=== PATIENT | male | born 1990 | race Caucasian/White ===

== ENCOUNTER 2021-05-05 02:37 | Emergency (ER) | payer OTHER ==
[~2021-05-05] VITALS: Ht 175.3 cm; Wt 64.0 kg
[2021-05-05] MEDS ORDERED: ONDANSETRON 2MG/ML, 2ML ONE (03:00)
[2021-05-05] MEDS ORDERED: ONDANSETRON 2MG/ML, 2ML IVPush ONE (03:00)
[2021-05-05] MEDS ORDERED: HYDROmorphone 1 MG/ML, 1ML INJ IV ONE ×2 (03:00→04:30)
[2021-05-05] MEDS ORDERED: HYDROmorphone 2 MG/ML, 1ML ONE ×2 (03:00→04:23)
[2021-05-05] MEDS ORDERED: SODIUM CHLORIDE FLUSH 10ML SYR IVF ONE (03:00)
[2021-05-05] MEDS ORDERED: SODIUM CHLORIDE 0.9% 1,000ML IVBOLUS ONE (03:30)
--- NOTE | 2021-05-05 03:39 | NUR ---
PIV PLACED, MEDS ADMIN PER OCT. ERNP NOTIFIED OF LOW BP, ORDER RECEIVED FOR IVF BOLUS. IVF RUNNING PER OCT. BP 100/65.
--- NOTE | 2021-05-05 04:28 | NUR ---
PT BACK FROM XRAY. PT C/O 06/04 PAIN. SECOND DOSE PAIN SNOW REMOVAL/PLOWING PER OCT.
[2021-05-05] MEDS ORDERED: PROPOFOL 10 MG/ML, 20ML ONE (04:50)
[2021-05-05] MEDS ORDERED: PROPOFOL 10 MG/ML, 20ML IVPush ONE (05:00)
--- NOTE | 2021-05-05 05:54 | NUR ---
BREAK RN: PT HAD SEDATION PROCEDURE DONE AND RECOVERED. SEE SEDATION SHEET AND NOTES. PT SIGNED CONSENT PRIOR TO PROCEDURE, AND RIGHT WRIST REDUCED UNDER CONSCIOUSS SEDATION, AND PT TOLERATED WELL. PTS GIRLFRIEND BROUGHT TO ROOM, SHE IS HIS RIDE. NO FURTHER SEDATION. TOTAL OF 170MG OF PROPOFOL USED.
--- NOTE | 2021-05-05 06:26 | NUR ---
PT GIRLFRIEND, CAMILLE, NOT IN LOBBY AT THIS TIME. SHE HAS PT PHONE, UNABLE TO CALL HER.
[2021-05-05 07:33] VITALS: BP 105/66
--- NOTE | 2021-05-05 07:33 | NUR ---
Patient given discharge instructions and they have confirmed that they understand the instructions. Patient ambulatory with steady gait. DC'd w/ girlfriend.
== END 2021-05-05 07:34 | disposition home or self-care (01) ==
LOC: ED 02:45
DX: S52.501A Unspecified fracture of the lower end of right radius, initial encounter for closed fracture (principal); S52.021A Displaced fracture of olecranon process without intraarticular extension of right ulna, initial encounter for closed fracture; F17.210 Nicotine dependence, cigarettes, uncomplicated; W18.30XA Fall on same level, unspecified, initial encounter; Y93.89 Activity, other specified; Y92.89 Other specified places as the place of occurrence of the external cause; Y99.8 Other external cause status
CPT/HCPCS: 25605; 73080; 73100; 73110; 96361; 96374; 96375; 96376; 99152; 99153; 99285; 99406; J1170; J2405; J2704; J7030